=== PATIENT | female | born 1980 | race American Indian/Alaskan Native ===

== ENCOUNTER 2022-04-12 23:48 | Emergency (ER) | payer SELFPAY ==
[2022-04-13] MEDS ORDERED: TETANUS,DIPHTHERIA TOXOID ADULT 0.5 ML INJ IM ONE (02:11)
--- NOTE | 2022-04-13 02:47 | XRay Report ---
Left finger 3 views INDICATION: Left finger pain IMPRESSION: Prominent laceration overlying the distal aspect of the ring finger. No underlying fractu re or subluxation is appreciated. Signer Name: Reji Baird MD Signed: 04/13/2022 2:43 AM Workstation Name: [id number]
[2022-04-13] MEDS ORDERED: AMOXICILLIN/K CLAV 875/125MG TAB PO ONE (08:12)
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
[2022-04-13] MEDS ORDERED: TETANUS,DIPH,PERTUSS(ACELL) VACCINE 0.5 ML SYRINGE IM ONE (09:48)
[2022-04-13 10:12] VITALS: BP 122/53
== END 2022-04-13 10:12 | disposition home or self-care (01) ==
LOC: ED 23:48
DX: S61.211A Laceration without foreign body of left index finger without damage to nail, initial encounter (principal); E11.9 Type 2 diabetes mellitus without complications; X58.XXXA Exposure to other specified factors, initial encounter; Y92.9 Unspecified place or not applicable; Y99.9 Unspecified external cause status
CPT/HCPCS: 90714; 90715; 96372; 99283